=== PATIENT | female | born 1945 | race Caucasian/White ===

== ENCOUNTER 2023-12-13 02:25 | Emergency (ER) | payer MEDICARE ==
[~2023-12-13] VITALS: Ht 152.4 cm; Wt 49.9 kg
[2023-12-13 02:39] VITALS: TEMP 98.4
[2023-12-13] MEDS: Morphine 4mg INJECTION 4 MG/ML INJ IV ONE (02:53)
[2023-12-13] MEDS: ONDANSETRON HCL INJ 2MG/ML 2ML 2 MG/ML VIAL IV STA (02:53)
[2023-12-13 03:05] LABS: BASOPHILS % 0.6 % (0.0-1.0); EOSINOPHILS # (AUTO) 0.2 (0.0-0.4); EOSINOPHILS % 2.9 % (0.0-6.0); HEMOGLOBIN 11.2 g/dL (12.0-16.0); LYMPHOCYTES # (AUTO) 3.5 (1.0-3.2); LYMPHOCYTES % 47.7 % (18.0-39.1); MEAN CORPUSCULAR HEMOGLOBIN 26.5 pg (28-32); MEAN CORPUSCULAR HGB CONC 29.5 g/dL (31-35); MEAN CORPUSCULAR VOLUME 89.8 fL (81-99); MONOCYTES # (AUTO) 0.6 (0.2-0.8); MONOCYTES % 8.3 % (4.4-11.3); NEUTROPHILS # (AUTO) 2.9 (2.1-6.9); NEUTROPHILS % 40.1 % (38.7-80.0); PLATELET COUNT 265 x10e3/uL (140-360); RED BLOOD COUNT 4.23 x10e6/uL (3.6-5.1); RED CELL DISTRIBUTION WIDTH 15.6 % (11.7-14.4); WHITE BLOOD COUNT 7.26 x10e3/uL (4.8-10.8)
[2023-12-13 03:22] LABS: INR 0.83; PROTHROMBIN TIME 11.8 seconds (11.9-14.5)
[2023-12-13 03:23] LABS: PARTIAL THROMBOPLASTIN TIME 23.6 seconds (23.8-35.5)
[2023-12-13 03:54] LABS: POTASSIUM 4.3 mmol/L (3.0-5.1)
[2023-12-13 03:55] LABS: ANION GAP 13.3 mmol/L (8-16)
[2023-12-13 03:56] LABS: CALCIUM 9.5 mg/dL (8.0-10.3)
[2023-12-13] MEDS: HYDROMORPHONE 1MG/1ML INJ IV STA (04:48)
[2023-12-13 05:00] VITALS: PULSE 99; RESP 16; O2SAT 98
== END 2023-12-13 05:10 | disposition other institution (70) ==
LOC: ER 02:30
DX: S72.092A Other fracture of head and neck of left femur, initial encounter for closed fracture (principal); W01.0XXA Fall on same level from slipping, tripping and stumbling without subsequent striking against object, initial encounter; Y93.01 Activity, walking, marching and hiking; Y92.89 Other specified places as the place of occurrence of the external cause
CPT/HCPCS: 36415; 73502; 80048; 85025; 85610; 85730; 99284; J1170; J2270; J2405

== ENCOUNTER 2024-02-07 13:00 | Inpatient (IN) | payer MEDICARE ==
[~2024-02-07] VITALS: Ht 152.4 cm; Wt 50.0 kg
[2024-02-07 14:19] LABS: BASOPHILS # (AUTO) 0.1 (0.0-0.1); BASOPHILS % 0.7 % (0.0-1.0); EOSINOPHILS # (AUTO) 0.1 (0.0-0.4); EOSINOPHILS % 0.4 % (0.0-6.0); HEMATOCRIT 32.8 % (34.2-44.1); HEMOGLOBIN 9.7 g/dL (12.0-16.0); LYMPHOCYTES # (AUTO) 1.4 (1.0-3.2); LYMPHOCYTES % 10.1 % (18.0-39.1); MEAN CORPUSCULAR HEMOGLOBIN 26.6 pg (28-32); MEAN CORPUSCULAR HGB CONC 29.6 g/dL (31-35); MEAN CORPUSCULAR VOLUME 89.9 fL (81-99); MONOCYTES # (AUTO) 1.1 (0.2-0.8); MONOCYTES % 8.1 % (4.4-11.3); NEUTROPHILS # (AUTO) 10.8 (2.1-6.9); NEUTROPHILS % 80.3 % (38.7-80.0); PLATELET COUNT 564 x10e3/uL (140-360); RED BLOOD COUNT 3.65 x10e6/uL (3.6-5.1); RED CELL DISTRIBUTION WIDTH 16.4 % (11.7-14.4); WHITE BLOOD COUNT 13.43 x10e3/uL (4.8-10.8)
[2024-02-07 14:30] LABS: INR 1.18; PROTHROMBIN TIME 15.6 seconds (11.9-14.5)
[2024-02-07 14:44] LABS: ALANINE AMINOTRANSFERASE 6 IU/L (0-55); ALBUMIN 2.3 g/dL (3.5-5.0); ALBUMIN/GLOBULIN RATIO 0.5 (0.8-2.0); ALKALINE PHOSPHATASE 95 IU/L (40-150); ANION GAP 18.1 mmol/L (8-16); BILIRUBIN,TOTAL 0.4 mg/dL (0.2-1.2); BLOOD UREA NITROGEN 12 mg/dL (7-26); BUN/CREATININE RATIO 16 (6-25); CALCIUM 8.9 mg/dL (8.4-10.2); CARBON DIOXIDE 21 mmol/L (22-29); CHLORIDE 99 mmol/L (98-107); CREATINE KINASE 106 IU/L (29-168); CREATININE, SERUM 0.76 mg/dL (0.57-1.11); EST GLOMERULAR FILTRATION RATE 80 ML/MIN (>=60); GLUCOSE 121 mg/dL (74-118); MAGNESIUM 1.7 MG/DL (1.3-2.1); POTASSIUM 4.1 mmol/L (3.5-5.1); SODIUM 134 mmol/L (136-145); TOTAL PROTEIN 6.8 g/dL (6.5-8.1)
[2024-02-07 14:47] VITALS: PULSE 104; RESP 18; O2SAT 93
[2024-02-07] MEDS: ALBUTEROL/IPRATROPIUM 3 ML NEB NEB ONE (14:48)
[2024-02-07 14:51] LABS: TROPONIN I 0.043 ng/mL (0-0.300)
[2024-02-07] MEDS: METHYLPREDNISOLONE SOD SUCC 125 MG/2ML VIAL IV STA (14:51)
[2024-02-07] MEDS: ONDANSETRON HCL INJ 2MG/ML 2ML 2 MG/ML VIAL IV STA (14:51)
[2024-02-07] MEDS: Doxycycline IV 100 MG in SODIUM CHLORIDE 0.9% 100 ML IV SCH (14:54)
[2024-02-07] MEDS: SODIUM CHLORIDE 0.9% 1000ML 1,000 ML IV STA (14:54)
[2024-02-07 15:28] VITALS: PULSE 101; RESP 18; O2SAT 92
[2024-02-07 15:32] LABS: COVID 19 ANTIGEN NOT DETECTED (NEGATIVE); INFLUENZAE A&B ANTIGEN (RAPID) NEGATIVE (NEGATIVE)
[2024-02-07 15:41] LABS: RESPIRATORY SYNC. VIRUS NEGATIVE (NEGATIVE)
[2024-02-07] MEDS ORDERED: IOPAMIDOL 370 MG/ML 100 ML INFUS..BTL INJ ONE ×2 (17:15→23:46)
[2024-02-07] MEDS ORDERED: METOPROLOL TARTRATE INJ 1 MG/ML VIAL IV PRN (17:45)
[2024-02-07] MEDS ORDERED: POLYETHYLENE GLYCOL 3350 17 GM PACK PO PRN (17:45)
[2024-02-07] MEDS ORDERED: ONDANSETRON HCL INJ 2MG/ML 2ML 2 MG/ML VIAL IV PRN (17:45)
[2024-02-07] MEDS ORDERED: ALBUTEROL SULF 0.083% NEB SOLN 3 ML NEB NEB SCH (19:00)
[2024-02-07] MEDS: MAGNESIUM SULF 1GRAM/DEXTROSE 100 ML IV ONE (19:56)
[2024-02-07] MEDS: SODIUM CHLORIDE 0.9% 1000ML 1,000 ML IV SCH (19:56)
[2024-02-07] MEDS: IPRATROPIUM BROMIDE 0.02% 2.5 ML NEB NEB SCH (19:57)
[2024-02-07 20:07] VITALS: PULSE 98; RESP 24; O2SAT 95
[2024-02-07 22:29] LABS: TROPONIN I 0.038 ng/mL (0-0.300)
[2024-02-08] VITALS (22 sets, daily range): BP systolic 101–135; BP diastolic 63–96; PULSE 83–140; RESP 19–37; TEMP 98–98.7; O2SAT 90–100
[2024-02-08 01:19] LABS: CLARITY,URINE CLEAR (CLEAR); COLOR,URINE YELLOW (YELLOW); GLUCOSE, URINE NEGATIVE (NEGATIVE); LEUKOCYTE ESTERASE ,URINE NEGATIVE (NEGATIVE); NITRITE,URINE NEGATIVE (NEGATIVE); PH,URINE 5.5 (5 - 7); PROTEIN,URINE DIPSTICK NEGATIVE (NEGATIVE)
[2024-02-08 01:20] LABS: BILIRUBIN,URINE NEGATIVE (NEGATIVE); KETONES,URINE NEGATIVE (NEGATIVE); URINE UROBILINOGEN 0.2 mg/dL (0.2 - 1)
[2024-02-08 02:08] LABS: BACTERIA,URINE MODERATE /HPF; RBC,URINE 0-5 /HPF (0-5); WBC,URINE (MAN) 0-5 /HPF (0-5)
[2024-02-08 02:09] LABS: EPITHELIAL CELLS,URINE FEW /LPF
[2024-02-08 02:49] LABS: CREATINE KINASE 93 IU/L (29-168)
[2024-02-08 02:58] LABS: TROPONIN I < 0.05 ng/mL (0.0-0.40)
[2024-02-08] MEDS: ALBUTEROL SULF 0.083% NEB SOLN 3 ML NEB NEB PRN (05:26)
[2024-02-08 05:52] LABS: BASOPHILS % 0.1 % (0.0-1.0); HEMATOCRIT 31.1 % (34.2-44.1); HEMOGLOBIN 9.1 g/dL (12.0-16.0); LYMPHOCYTES # (AUTO) 0.8 (1.0-3.2); LYMPHOCYTES % 11.4 % (18.0-39.1); MEAN CORPUSCULAR HEMOGLOBIN 26.1 pg (28-32); MEAN CORPUSCULAR HGB CONC 29.3 g/dL (31-35); MEAN CORPUSCULAR VOLUME 89.1 fL (81-99); MONOCYTES # (AUTO) 0.1 (0.2-0.8); MONOCYTES % 1.5 % (4.4-11.3); NEUTROPHILS # (AUTO) 6.2 (2.1-6.9); NEUTROPHILS % 86.4 % (38.7-80.0); PLATELET COUNT 454 x10e3/uL (140-360); RED BLOOD COUNT 3.49 x10e6/uL (3.6-5.1); RED CELL DISTRIBUTION WIDTH 16.5 % (11.7-14.4); WHITE BLOOD COUNT 7.13 x10e3/uL (4.8-10.8)
[2024-02-08 06:27] LABS: ALBUMIN 2.1 g/dL (3.5-5.0); ALBUMIN/GLOBULIN RATIO 0.5 (0.8-2.0); ANION GAP 17.2 mmol/L (8-16); BILIRUBIN,TOTAL 0.3 mg/dL (0.2-1.2); CALCIUM 8.5 mg/dL (8.4-10.2); CHOL/HDL RATIO 3.2 (3.0-3.6); CREATININE, SERUM 0.65 mg/dL (0.57-1.11); MAGNESIUM 2.1 MG/DL (1.3-2.1); PHOSPHORUS 3.3 MG/DL (2.3-4.7); POTASSIUM 4.2 mmol/L (3.5-5.1); TOTAL PROTEIN 6.3 g/dL (6.5-8.1)
[2024-02-08 08:01] LABS: FREE T4 (FREE THYROXINE) 1.26 ng/dL (0.8-1.8); THYROID STIMULATING HORMONE 0.933 uIU/mL (0.350-4.940)
[2024-02-08] MEDS: DOCUSATE SODIUM 100 MG CAP PO SCH (09:00)
[2024-02-08] MEDS ORDERED: med (09:10)
[2024-02-08] MEDS ORDERED: TYLENOL 3 PO (09:12)
[2024-02-08] MEDS ORDERED: XANAX0.25 MG PO (09:14)
[2024-02-08] MEDS ORDERED: AMLODIPINE BESY10 MG PO (09:15)
[2024-02-08] MEDS ORDERED: CALTRATE PLUS1 EACH PO (09:17)
[2024-02-08] MEDS ORDERED: CELEXA20 MG PO (09:18)
[2024-02-08] MEDS ORDERED: COLESTID1 G PO (09:20)
[2024-02-08] MEDS ORDERED: FOLIC ACID0.4 MG PO (09:21)
[2024-02-08] MEDS ORDERED: NEURONTIN100 MG PO (09:22)
[2024-02-08] MEDS ORDERED: GLUCOSAMINE &1 EACH PO (09:23)
[2024-02-08] MEDS ORDERED: HUMIRA40 MG/0.8 IJ (09:24)
[2024-02-08] MEDS ORDERED: PLAQUENIL200 MG PO (09:25)
[2024-02-08] MEDS ORDERED: LORATADINE10 MG PO (09:26)
[2024-02-08] MEDS ORDERED: ARAVA20 MG PO (09:26)
[2024-02-08] MEDS ORDERED: MELOXICAM7.5 MG PO (09:27)
[2024-02-08] MEDS ORDERED: MEDROL4 MG PO (09:28)
[2024-02-08] MEDS ORDERED: OMEGA 3 1,0001 EACH PO (09:29)
[2024-02-08] MEDS ORDERED: SIMVASTATIN40 MG PO (09:30)
[2024-02-08] MEDS ORDERED: OMEPRAZOLE40 MG PO (09:30)
[2024-02-08 09:37] LABS: TROPONIN I 0.025 ng/mL (0-0.300)
[2024-02-08] MEDS ORDERED: ACETAMINOPHEN 325 MG TAB PO PRN (09:45)
[2024-02-08] MEDS: PANTOPRAZOLE SODIUM 20 MG TABLET.DR PO SCH (10:04)
[2024-02-08] MEDS: LORATADINE 10 MG TAB PO SCH (10:05)
[2024-02-08] MEDS: MELOXICAM 7.5 MG TAB PO SCH (10:05)
[2024-02-08] MEDS: FAMOTIDINE 20 MG TAB PO SCH (10:05)
[2024-02-08] MEDS: HYDROXYCHLOROQUINE SULFATE 200 MG TAB PO SCH (10:05)
[2024-02-08] MEDS: ACETAMINOPHEN 325 MG TAB PO PRN (11:07)
[2024-02-08] MEDS: ONDANSETRON HCL INJ 2MG/ML 2ML 2 MG/ML VIAL IV PRN (11:54)
[2024-02-08] MEDS: CARVEDILOL 3.125 MG TAB PO SCH (16:54)
[2024-02-08] MEDS: SACUBITRIL/VALSARTAN 24MG/26MG 1 EA TAB PO SCH (16:54)
[2024-02-08] MEDS: ALPRAZOLAM 0.25 MG TAB PO PRN (17:50)
[2024-02-08] MEDS: SIMVASTATIN 40 MG TAB PO SCH (20:06)
[2024-02-08] MEDS: CITALOPRAM HYDROBROMIDE 20 MG TAB PO SCH (20:06)
[2024-02-08] MEDS: FUROSEMIDE INJ 10 MG/ML 4 ML VIAL IV SCH (20:06)
[2024-02-08] MEDS: GABAPENTIN 100 MG CAP PO SCH (20:06)
[2024-02-08] MEDS ORDERED: AMLODIPINE BESYLATE 10 MG TAB PO SCH (21:00)
[2024-02-09] VITALS (26 sets, daily range): BP systolic 97–124; BP diastolic 51–98; PULSE 68–103; RESP 15–30; TEMP 98–98.2; O2SAT 85–100
[2024-02-09 07:10] LABS: BASOPHILS % 0.1 % (0.0-1.0); EOSINOPHILS % 0.2 % (0.0-6.0); HEMATOCRIT 33.4 % (34.2-44.1); HEMOGLOBIN 9.8 g/dL (12.0-16.0); LYMPHOCYTES # (AUTO) 1.6 (1.0-3.2); MEAN CORPUSCULAR HEMOGLOBIN 26.2 pg (28-32); MEAN CORPUSCULAR HGB CONC 29.3 g/dL (31-35); MEAN CORPUSCULAR VOLUME 89.3 fL (81-99); MONOCYTES # (AUTO) 0.9 (0.2-0.8); MONOCYTES % 6.7 % (4.4-11.3); NEUTROPHILS # (AUTO) 10.8 (2.1-6.9); NEUTROPHILS % 80.5 % (38.7-80.0); PLATELET COUNT 490 x10e3/uL (140-360); RED BLOOD COUNT 3.74 x10e6/uL (3.6-5.1); RED CELL DISTRIBUTION WIDTH 16.6 % (11.7-14.4); WHITE BLOOD COUNT 13.45 x10e3/uL (4.8-10.8)
[2024-02-09 07:26] LABS: ALBUMIN 1.9 g/dL (3.5-5.0); ALBUMIN/GLOBULIN RATIO 0.5 (0.8-2.0); ANION GAP 14.6 mmol/L (8-16); BILIRUBIN,TOTAL 0.3 mg/dL (0.2-1.2); CALCIUM 8.6 mg/dL (8.4-10.2); CREATININE, SERUM 0.67 mg/dL (0.57-1.11); POTASSIUM 3.6 mmol/L (3.5-5.1); TOTAL PROTEIN 5.5 g/dL (6.5-8.1)
[2024-02-09 08:02] LABS: THYROID STIMULATING HORMONE 1.327 uIU/mL (0.350-4.940)
[2024-02-09 08:37] LABS: FOLATE 15.3 ng/mL (7.0-15.4)
[2024-02-09] MEDS: POTASSIUM CHLORIDE 20 MEQ TAB CR PO ONE (16:53)
[2024-02-10] VITALS (18 sets, daily range): BP systolic 107–120; BP diastolic 51–73; PULSE 55–101; RESP 18–25; TEMP 98–98.4; O2SAT 88–100
[2024-02-10 06:37] LABS: BASOPHILS % 0.3 % (0.0-1.0); EOSINOPHILS # (AUTO) 0.3 (0.0-0.4); EOSINOPHILS % 2.3 % (0.0-6.0); HEMATOCRIT 35.6 % (34.2-44.1); HEMOGLOBIN 10.8 g/dL (12.0-16.0); LYMPHOCYTES % 16.2 % (18.0-39.1); MEAN CORPUSCULAR HEMOGLOBIN 26.5 pg (28-32); MEAN CORPUSCULAR HGB CONC 30.3 g/dL (31-35); MEAN CORPUSCULAR VOLUME 87.5 fL (81-99); NEUTROPHILS # (AUTO) 9.1 (2.1-6.9); NEUTROPHILS % 72.7 % (38.7-80.0); PLATELET COUNT 456 x10e3/uL (140-360); RED BLOOD COUNT 4.07 x10e6/uL (3.6-5.1); RED CELL DISTRIBUTION WIDTH 16.4 % (11.7-14.4); WHITE BLOOD COUNT 12.56 x10e3/uL (4.8-10.8)
[2024-02-10 07:20] LABS: ALBUMIN 1.9 g/dL (3.5-5.0); ALBUMIN/GLOBULIN RATIO 0.6 (0.8-2.0); ANION GAP 16.3 mmol/L (8-16); BILIRUBIN,TOTAL 0.4 mg/dL (0.2-1.2); CALCIUM 8.3 mg/dL (8.4-10.2); CREATININE, SERUM 0.73 mg/dL (0.57-1.11); TOTAL PROTEIN 5.3 g/dL (6.5-8.1)
[2024-02-10 07:21] LABS: POTASSIUM 3.3 mmol/L (3.5-5.1)
[2024-02-10] MEDS: POTASSIUM CHLORIDE 20 MEQ TAB CR PO STA (09:06)
[2024-02-10] MEDS: DIPHENOXYLATE/ATROPINE TAB PO PRN (22:18)
[2024-02-11] VITALS (16 sets, daily range): BP systolic 106–129; BP diastolic 52–89; PULSE 69–105; RESP 16–20; TEMP 98.5; O2SAT 93–100
[2024-02-11] MEDS: POTASSIUM CHLORIDE 20 MEQ TAB CR PO ONE (08:13)
[2024-02-11] MEDS: IRON SUCROSE 100 MG in SODIUM CHLORIDE 0.9% 100 ML IV SCH (08:21)
[2024-02-11] MEDS: METHYLPREDNISOLONE SOD SUCC 40 MG/ML VIAL 1ML IV PRN (08:38)
[2024-02-11 20:10] LABS: LEGIONELLA ANTGEN (U) Negative (Negative)
[2024-02-12] VITALS (11 sets, daily range): BP systolic 112–128; BP diastolic 56–68; PULSE 66–100; RESP 18–19; TEMP 97.9–98.8; O2SAT 95–100
[2024-02-12 05:54] LABS: BASOPHILS # (AUTO) 0.1 (0.0-0.1); BASOPHILS % 0.6 % (0.0-1.0); EOSINOPHILS # (AUTO) 0.7 (0.0-0.4); EOSINOPHILS % 8.4 % (0.0-6.0); HEMATOCRIT 35.7 % (34.2-44.1); HEMOGLOBIN 10.6 g/dL (12.0-16.0); LYMPHOCYTES % 23.2 % (18.0-39.1); MEAN CORPUSCULAR HEMOGLOBIN 26.3 pg (28-32); MEAN CORPUSCULAR HGB CONC 29.7 g/dL (31-35); MEAN CORPUSCULAR VOLUME 88.6 fL (81-99); MONOCYTES # (AUTO) 0.9 (0.2-0.8); MONOCYTES % 10.3 % (4.4-11.3); NEUTROPHILS # (AUTO) 4.8 (2.1-6.9); NEUTROPHILS % 56.8 % (38.7-80.0); PLATELET COUNT 460 x10e3/uL (140-360); RED BLOOD COUNT 4.03 x10e6/uL (3.6-5.1); RED CELL DISTRIBUTION WIDTH 16.5 % (11.7-14.4); WHITE BLOOD COUNT 8.48 x10e3/uL (4.8-10.8)
[2024-02-12] MEDS: FUROSEMIDE INJ 10 MG/ML 4 ML VIAL IV SCH (06:13)
[2024-02-12 06:23] LABS: ALBUMIN 2.1 g/dL (3.5-5.0); ALBUMIN/GLOBULIN RATIO 0.7 (0.8-2.0); ANION GAP 13.7 mmol/L (8-16); BILIRUBIN,TOTAL 0.3 mg/dL (0.2-1.2); CALCIUM 8.9 mg/dL (8.4-10.2); CREATININE, SERUM 0.64 mg/dL (0.57-1.11); POTASSIUM 3.7 mmol/L (3.5-5.1); TOTAL PROTEIN 5.3 g/dL (6.5-8.1)
[2024-02-12 07:38] LABS: MYCOPLASMA PNEUMO IGG 363 U/mL (0-99); MYCOPLASMA PNEUMO IGM <770 U/mL (0-769)
[2024-02-12] MEDS: Doxycycline IV 100 MG in SODIUM CHLORIDE 0.9% 100 ML IV SCH (16:28)
[2024-02-13] VITALS (12 sets, daily range): BP systolic 108–133; BP diastolic 48–70; PULSE 70–90; RESP 16–19; TEMP 97.1–99; O2SAT 93–100
[2024-02-13] MEDS: SPIRONOLACTONE 25 MG TAB PO SCH (08:38)
[2024-02-14] VITALS (11 sets, daily range): BP systolic 98–150; BP diastolic 49–74; PULSE 49–90; RESP 16–20; TEMP 97.1–99.2; O2SAT 93–100
[2024-02-14 06:11] LABS: BASOPHILS # (AUTO) 0.1 (0.0-0.1); BASOPHILS % 0.9 % (0.0-1.0); EOSINOPHILS # (AUTO) 1.3 (0.0-0.4); EOSINOPHILS % 13.2 % (0.0-6.0); HEMATOCRIT 35.2 % (34.2-44.1); HEMOGLOBIN 10.5 g/dL (12.0-16.0); LYMPHOCYTES # (AUTO) 2.5 (1.0-3.2); LYMPHOCYTES % 25.2 % (18.0-39.1); MEAN CORPUSCULAR HEMOGLOBIN 25.7 pg (28-32); MEAN CORPUSCULAR HGB CONC 29.8 g/dL (31-35); MEAN CORPUSCULAR VOLUME 86.1 fL (81-99); MONOCYTES # (AUTO) 1.1 (0.2-0.8); MONOCYTES % 10.8 % (4.4-11.3); NEUTROPHILS % 49.4 % (38.7-80.0); PLATELET COUNT 394 x10e3/uL (140-360); RED BLOOD COUNT 4.09 x10e6/uL (3.6-5.1); RED CELL DISTRIBUTION WIDTH 16.8 % (11.7-14.4); WHITE BLOOD COUNT 10.08 x10e3/uL (4.8-10.8)
[2024-02-14 06:41] LABS: ANION GAP 14.1 mmol/L (8-16); CREATININE, SERUM 0.67 mg/dL (0.57-1.11)
[2024-02-14 06:55] LABS: POTASSIUM 3.1 mmol/L (3.5-5.1)
[2024-02-14 15:33] LABS: CHLAMYDOPHILA PSITTACI IGM <1:10
[2024-02-14 15:34] LABS: CHLAMYDIA TRACHOMATIS IGM <1:10
[2024-02-15] VITALS (10 sets, daily range): BP systolic 101–115; BP diastolic 46–61; PULSE 75–93; RESP 15–18; TEMP 97.7–99.1; O2SAT 94–100
[2024-02-16] VITALS (8 sets, daily range): BP systolic 102–132; BP diastolic 46–68; PULSE 67–99; RESP 18–20; TEMP 98.1–98.8; O2SAT 95–100
[2024-02-16 05:29] LABS: BASOPHILS # (AUTO) 0.1 (0.0-0.1); EOSINOPHILS # (AUTO) 1.1 (0.0-0.4); EOSINOPHILS % 13.7 % (0.0-6.0); HEMATOCRIT 33.8 % (34.2-44.1); LYMPHOCYTES # (AUTO) 2.3 (1.0-3.2); LYMPHOCYTES % 27.3 % (18.0-39.1); MEAN CORPUSCULAR HEMOGLOBIN 25.6 pg (28-32); MEAN CORPUSCULAR HGB CONC 29.6 g/dL (31-35); MEAN CORPUSCULAR VOLUME 86.7 fL (81-99); MONOCYTES # (AUTO) 1.2 (0.2-0.8); MONOCYTES % 13.9 % (4.4-11.3); NEUTROPHILS # (AUTO) 3.6 (2.1-6.9); NEUTROPHILS % 43.6 % (38.7-80.0); PLATELET COUNT 358 x10e3/uL (140-360); WHITE BLOOD COUNT 8.34 x10e3/uL (4.8-10.8)
[2024-02-16] MEDS ORDERED: ONDANSETRON HCL 4 MG ORAL DISINTEGRATING TAB PO PRN (12:45)
[2024-02-16] MEDS: POTASSIUM CHLORIDE 10MEQ EA PO ONE (13:53)
[2024-02-17] MEDS ORDERED: FUROSEMIDE 40 MG TAB PO SCH (06:00)
[2024-02-21 11:22] LABS: ABG HCO3 23 mmol/L (22-26); ABG PCO2 33 mmHg (35-45); ABG PH 7.46 (7.35-7.45); ABG PO2 33 mmHg (80-105); ABG TCO2 24
== END 2024-02-16 14:15 | disposition home or self-care (01) | DRG 193 ==
LOC: ER 13:13 → ERHOLD 16:31 → ICU 02-08 07:52 → MED/SURG2 02-11 20:40
PROVIDERS: ADMIT Internal Medicine; ATTEND Internal Medicine
PROC: 4A033R1 Measurement of Arterial Saturation, Peripheral, Percutaneous Approach (ICD-10-PCS; principal; 2024-02-07)
PROC: 5A0945A Assistance with Respiratory Ventilation, 24-96 Consecutive Hours, High Flow/Velocity Cannula (ICD-10-PCS; 2024-02-07)
DX: J18.9 Pneumonia, unspecified organism (principal); I50.23 Acute on chronic systolic (congestive) heart failure; J96.21 Acute and chronic respiratory failure with hypoxia; I42.8 Other cardiomyopathies; J91.8 Pleural effusion in other conditions classified elsewhere; J44.0 Chronic obstructive pulmonary disease with (acute) lower respiratory infection; J44.1 Chronic obstructive pulmonary disease with (acute) exacerbation; D84.9 Immunodeficiency, unspecified; I11.0 Hypertensive heart disease with heart failure; R53.81 Other malaise; R63.4 Abnormal weight loss; Z68.21 Body mass index [BMI] 21.0-21.9, adult; Z11.52 Encounter for screening for COVID-19; M19.90 Unspecified osteoarthritis, unspecified site; M06.9 Rheumatoid arthritis, unspecified; Z90.710 Acquired absence of both cervix and uterus; Z87.891 Personal history of nicotine dependence
CPT/HCPCS: 0223U; 36415; 71045; 71260; 80048; 80053; 80061; 81001; 82550; 82607; 82746; 82805; 83036; 83540; 83605; 83735; 83880; 84100; 84439; 84443; 84466; 84484; 85025; 85610; 85730; 86631; 86738; 87040; 87400; 87420; 87449; 93005; 93306; 94640; 94799; 99252; 99284; J0696; J1756; J1940; J2405; J2543; J2919; J3475; J7030; J7050; Q9967